=== PATIENT | female | born 1945 | race Caucasian/White ===

== ENCOUNTER 2018-09-12 00:56 | Inpatient (IN) | payer MEDICARE ==
[2018-09-12] MEDS ORDERED: HYDROcodone/APAP 10-325MG 1 EACH TAB PO PRN (03:52)
[2018-09-12 04:14] VITALS: BMI 23.3
[2018-09-12 05:18] LABS: Calcium 8.8 mg/dL (8.4-10.2); Potassium 4.1 mmol/L (3.5-5.1)
[2018-09-12 05:25] LABS: Basophils % (A) 0 %; Eosinophils # (A) 0.2 k/uL (0-0.7); Eosinophils % (A) 2 %; HCT 32.6 % (34.0-46.0); HGB 10.4 gm/dL (11.4-16.0); Lymphocytes # (A) 1.3 k/uL (1.0-4.8); Lymphocytes % (A) 17 %; MCH 30.8 pg (25.0-35.0); MCV 96.3 fL (80.0-100.0); Mean Platelet Volume 7.2; Monocytes # (A) 0.4 k/uL (0-1.0); Monocytes % (A) 5 %; Neutrophils # (A) 5.5 k/uL (1.3-7.7); Neutrophils % (A) 74 %; Platelet Count 202 k/uL (150-450); RBC 3.39 m/uL (3.80-5.40); RDW 13.6 % (11.5-15.5); WBC 7.4 k/uL (3.8-10.6)
[2018-09-12] MEDS: HYDROcodone/APAP 7.5-325MG 1 EACH TAB PO PRN ×3 (10:55→23:35)
--- NOTE | 2018-09-12 11:39 | CT ---
EXAMINATION TYPE: CT hip RT wo con DATE OF EXAM: 09/12/2018 COMPARISON: Outside right hip radiographs 09/11/2018 HISTORY: 73-year-old female fall, Right hip pain, ruling out fracture TECHNIQUE: Contiguous axial scanning of the right hip without IV contrast. Coronal and sagittal recon structions performed. CT DLP: 295.3 mGycm Automated exposure control for dose reduction was used. FINDINGS: Moderate degenerative change at the right hip. There is confirmation of a comminuted fracture of the greater trochanter. There is osteopenia without clear intertrochanteric extension adjacent soft tissu e swelling. Fenton catheter in place. IMPRESSION: 1. OSTEOPENIA WITH A COMMINUTED FRACTURE OF THE GREATER TROCHANTER. UNABLE TO CLEARLY IDENTIFY INTERT ROCHANTERIC EXTENSION. GIVEN THE OSTEOPENIA, IF CONCERN FOR INTERTROCHANTERIC EXTENSION, MRI CAN BE P ERFORMED. 2. MODERATE UNDERLYING RIGHT HIP OSTEOPOROSIS.
[2018-09-12] MEDS: DIAZEPAM 5 MG TAB PO SCH ×2 (16:03→20:01)
[2018-09-12] MEDS: HEPARIN SODIUM,PORCINE 5,000 UNIT/ML 1 ML VIAL SQ SCH ×2 (16:03→23:35)
[2018-09-12 16:35] LABS: Basophils % (A) 0 %; Eosinophils # (A) 0.2 k/uL (0-0.7); Eosinophils % (A) 3 %; HCT 32.7 % (34.0-46.0); HGB 10.5 gm/dL (11.4-16.0); Lymphocytes # (A) 1.4 k/uL (1.0-4.8); Lymphocytes % (A) 20 %; MCH 31.3 pg (25.0-35.0); MCHC 32.1 g/dL (31.0-37.0); MCV 97.5 fL (80.0-100.0); Mean Platelet Volume 7.1; Monocytes # (A) 0.4 k/uL (0-1.0); Monocytes % (A) 5 %; Neutrophils # (A) 4.9 k/uL (1.3-7.7); Neutrophils % (A) 70 %; Platelet Count 183 k/uL (150-450); RBC 3.35 m/uL (3.80-5.40); RDW 13.5 % (11.5-15.5)
[2018-09-12 16:37] LABS: INR 1.1 (<1.2)
--- NOTE | 2018-09-12 16:40 | P.CNOR ---
History of Present Illness - HPI Consult date: 09/12/18 History of present illness: This is a 73-year-old female who was transferred from [facility] for elevated troponins. Orthopedics is consulted to assess for right hip fracture. Patient states that she fell 2 days ago and has been unable to walk on the right leg since. Per nursing staff the patient lives at home with her son and fell while taking her cat outside. Patient does report pain in the right hip. Patient denies any back pain, numbness, weakness or tingling. Review of Systems See HPI. Past Medical History Past Medical History: Unable to Obtain History of Any Multi-Drug Resistant Organisms: None Reported Past Surgical History: Unable to Obtain Past Anesthesia/Blood Transfusion Reactions: No Reported Reaction Past Psychological History: Unable to Obtain Smoking Status: Current every day smoker Past Drug Use History: Unable to Obtain Medications and Allergies Home Medications Medication Instructions Recorded Confirmed Type Diazepam [Valium] 5 mg PO TID 06/27/16 09/12/18 History Furosemide [Lasix] 20 mg PO DAILY 06/27/16 09/12/18 History Meloxicam [Mobic] 7.5 mg PO BID 06/27/16 09/12/18 History Montelukast [Singulair] 10 mg PO DAILY 06/27/16 09/12/18 History Tiotropium 18 Mcg/Puff [Spiriva] 1 cap INHALATION DAILY 06/27/16 09/12/18 History HYDROcodone/APAP 5-325MG [Perkins 1 tab PO Q6HR 09/12/18 09/12/18 History 5-325] PARoxetine HCL [Paxil] 30 mg PO DAILY 09/12/18 09/12/18 History traZODone HCL 100 mg PO HS 09/12/18 09/12/18 History Allergies Allergy/AdvReac Type Severity Reaction Status Date / Time No Known Allergies Allergy Verified 09/12/18 07:57 Physical Examination On exam patient is resting comfortably in bed in no acute distress. Patient is alert. There is no tenderness to palpation over the right hip. There is no swelling, erythema or ecchymosis. Skin is intact. Compartments are soft. Patient has full active range of motion of the right lower extremity. There is some pain in the right hip with logroll. Calf is soft and nontender to palpation. Patient has full foot and ankle motion without pain or difficulty. Sensation is intact. Neurovascular status and circulatory status are intact. Results X-rays of the right hip from an outside facility show a cortical defect over the greater trochanter of the right hip. A CT scan of the right hip is pending for further evaluation. - Labs Labs: Abnormal Lab Results - Last 24 Hours (Table) 09/12/18 09/12/18 09/12/18 Range/Units 03:55 03:55 03:55 RBC 3.39 L (3.80-5.40) m/uL Hgb 10.4 L (11.4-16.0) gm/dL Hct 32.6 L (34.0-46.0) % Chloride 109 H (98-107) mmol/L Glucose 112 H (74-99) mg/dL Troponin I 0.077 H* (0.000-0.034) ng/mL H & H 09/12/18 Range/Units 03:55 Hgb 10.4 L (11.4-16.0) gm/dL Hct 32.6 L (34.0-46.0) % Result Diagrams: 09/12/18 03:55 09/12/18 03:55 Assessment and Plan (1) Elevated troponin Current Visit: Yes Status: Acute Code(s): R74.8 - ABNORMAL LEVELS OF OTHER SERUM ENZYMES SNOMED Code(s): 851099891 (2) Right hip pain Current Visit: Yes Status: Acute Code(s): M25.551 - PAIN IN RIGHT HIP SNOMED Code(s): 42516396 (3) Fall Current Visit: Yes Status: Acute Code(s): W19.XXXA - UNSPECIFIED FALL, INITIAL ENCOUNTER SNOMED Code(s): 5193408 Plan: #1.A CT scan of the right hip is pending. #2. Patient is to be nonweightbearing to the right lower extremity #3. Continue pain control. #4. Appreciate input from cardiology and internal medicine. #5. No surgical intervention planned for today. Further recommendations pending CT results.
[2018-09-12] MEDS: traZODone HCL 100 MG TAB PO SCH (20:01)
[2018-09-12] MEDS ORDERED: MELOXICAM 7.5 MG TAB PO SCH (21:00)
--- NOTE | 2018-09-13 01:06 | HP ---
HISTORY AND PHYSICAL CHIEF COMPLAINT: A 73-year-old white female admitted with right hip fracture and elevated troponins. She has been evaluated by Cardiology and Orthopedic surgery for possible treatment for the right hip fracture and she is having no chest pain or shortness of breath. HOME MEDICINES: See list. REVIEW OF SYSTEMS: Fourteen point review of systems negative except for mentioned in HPI. PHYSICAL EXAM: Vital signs stable. Afebrile. Cardiovascular S1, S2. LUNGS: Clear. GI soft. Hematology negative Homans. Psych fair mood and affect. NEUROLOGIC: Alert and oriented x3. Musculoskeletal: She is tender to palpation right hip. ASSESSMENT: 1. Acute trochanteric right hip fracture. 2. Elevated troponins. 3. Chronic obstructive pulmonary disease. 4. Nicotine addiction. 5. Hypertension. 6. Lumbar neuritis. Continue current treatment. Await Cardiology and orthopedic recommendations. MMODL / IJN: [id number] /
[2018-09-13] MEDS: HYDROcodone/APAP 7.5-325MG 1 EACH TAB PO PRN ×3 (04:45→18:45)
[2018-09-13 06:59] LABS: Basophils % (A) 1 %; Eosinophils # (A) 0.6 k/uL (0-0.7); Eosinophils % (A) 10 %; HCT 32.9 % (34.0-46.0); HGB 10.4 gm/dL (11.4-16.0); Hypochromasia Slight; Lymphocytes # (A) 1.9 k/uL (1.0-4.8); Lymphocytes % (A) 30 %; MCH 30.8 pg (25.0-35.0); MCHC 31.5 g/dL (31.0-37.0); MCV 97.6 fL (80.0-100.0); Mean Platelet Volume 7.1; Monocytes # (A) 0.3 k/uL (0-1.0); Monocytes % (A) 5 %; Neutrophils # (A) 3.4 k/uL (1.3-7.7); Neutrophils % (A) 54 %; Platelet Count 187 k/uL (150-450); RBC 3.37 m/uL (3.80-5.40); RDW 13.6 % (11.5-15.5); WBC 6.3 k/uL (3.8-10.6)
[2018-09-13] MEDS: IPRATROPIUM 0.5 MG/2.5 ML NEBU INHALATION SCH ×4 (06:59→20:24)
--- NOTE | 2018-09-13 07:07 | ECHOF ---
Referral Reason:abn trop MEASUREMENTS -------- HEIGHT: 165.1 cm WEIGHT: 57.6 kg BP: 143/67 RVIDd: 3.7 cm (< 3.3) IVSd: 0.7 cm (0.6 - 1.1) LVIDd: 4.1 cm (3.9 - 5.3) LVPWd: 0.9 cm (0.6 - 1.1) IVSs: 1.0 cm LVIDs: 2.4 cm LVPWs: 1.6 cm Ao Diam: 3.1 cm (2.0 - 3.7) AV Cusp: 1.7 cm (1.5 - 2.6) LA Diam: 1.0 cm (2.7 - 3.8) MV EXCURSION: 12.972 mm (> 18.000) MV EF SLOPE: 84 mm/s (70 - 150) EPSS: 1.4 cm MV E Jamie: 0.69 m/s MV DecT: 207 ms MV A Jamie: 0.89 m/s MV E/A Ratio: 0.78 RAP: 5.00 mmHg RVSP: 44.80 mmHg FINDINGS -------- Sinus rhythm. This was a technically adequate study. The left ventricular size is normal. Left ventricular wall thickness is normal. Overall left vent ricular systolic function is normal with, an EF between 55 - 60 %. The right ventricle is mild to moderately enlarged. The right ventricular systolic function is mode rately impaired. The left atrium is normal in size. The right atrium is normal in size. The aortic valve is trileaflet and appears structurally normal. The mitral valve leaflets are mildly thickened. There is trace mitral regurgitation. Mild tricuspid regurgitation present. There is mild pulmonary hypertension. The right ventricular systolic pressure, as measured by Doppler, is 44.80mmHg. There is no pulmonic regurgitation present. The aortic root size is normal. Normal inferior vena cava with normal inspiratory collapse consistent with estimated right atrial pre ssure of 5 mmHg. There is no pericardial effusion. CONCLUSIONS -------- 1. Sinus rhythm. 2. This was a technically adequate study. 3. The left ventricular size is normal. 4. Left ventricular wall thickness is normal. 5. Overall left ventricular systolic function is normal with, an EF between 55 - 60 %. 6. The right ventricle is mild to moderately enlarged. 7. The right ventricular systolic function is moderately impaired. 8. The left atrium is normal in size. 9. The aortic valve is trileaflet and appears structurally normal. 10. The mitral valve leaflets are mildly thickened. 11. There is trace mitral regurgitation. 12. Mild tricuspid regurgitation present. 13. There is mild pulmonary hypertension. 14. There is no pulmonic regurgitation present. 15. The aortic root size is normal. 16. Normal inferior vena cava with normal inspiratory collapse consistent with estimated right atrial pressure of 5 mmHg. 17. There is no pericardial effusion. HISTOLOGY TECHNOLOGIST: Griselda Juan RDCS
[2018-09-13] MEDS: SODIUM CHLORIDE 0.9% 1,000 ML IV SCH ×2 (07:57→21:42)
[2018-09-13] MEDS: FUROSEMIDE 20 MG TAB PO SCH (07:57)
[2018-09-13] MEDS: HEPARIN SODIUM,PORCINE 5,000 UNIT/ML 1 ML VIAL SQ SCH ×3 (07:57→23:21)
[2018-09-13] MEDS: MONTELUKAST 10 MG TAB PO SCH (07:58)
[2018-09-13] MEDS: PARoxetine 10 MG TAB PO SCH (07:58)
[2018-09-13] MEDS: KETOROLAC 30 MG/ML 1 ML VIAL IVP PRN ×3 (07:59→23:21)
--- NOTE | 2018-09-13 08:04 | P.CRDCN ---
History of Present Illness Consult date: 09/13/18 Requesting physician: David Felton Reason for Consult (text): Abnormal troponin Chief complaint: Fall History of present illness: This is a 73-year-old female with no prior documented history of hypertension, no diabetes, no hyperlipidemia, history of asthma, COPD, nicotine dependence, she was initially transferred here from [facility] after experiencing a fall at home. Patient denies any syncope, she just states that she tripped over something and fell. Troponins were drawn and Laureles which came back to be abnormal and for this reason the patient was transferred to [facility] for further evaluation. Initial troponin I [facility] 0.06, subsequent troponins performed here 0.07, 0.05, 0.03. CAT scan of the hip was performed which revealed osteopenia with comminuted fracture of the greater trochanter. Moderate right hip osteoporosis. Echocardiogram with Doppler study was performed which revealed an ejection fraction of 55-60%. Blood pressure 114/50 with a heart rate in the 80s, 95% on room air. Blood cell count is normal, hemoglobin 10.4, platelet count 187. Sodium 139, potassium 4.1 , BUN 17, creatinine 0.8. EKG at [facility] showed a normal sinus rhythm with no acute changes. Subsequent EKG performed on arrival here showed a normal sinus rhythm with no acute changes. At the time of my examination, patient feels tired, but otherwise has no complaints. She does have a bruised area noted to her chin. She is complaining of some mild discomfort in her right hip area. Past Medical History Past Medical History: Unable to Obtain History of Any Multi-Drug Resistant Organisms: None Reported Past Surgical History: Unable to Obtain Past Anesthesia/Blood Transfusion Reactions: No Reported Reaction Past Psychological History: Unable to Obtain Smoking Status: Current every day smoker Past Drug Use History: Unable to Obtain Medications and Allergies Home Medications Medication Instructions Recorded Confirmed Type Diazepam [Valium] 5 mg PO TID 06/27/16 09/12/18 History Furosemide [Lasix] 20 mg PO DAILY 06/27/16 09/12/18 History Meloxicam [Mobic] 7.5 mg PO BID 06/27/16 09/12/18 History Montelukast [Singulair] 10 mg PO DAILY 06/27/16 09/12/18 History Tiotropium 18 Mcg/Puff [Spiriva] 1 cap INHALATION DAILY 06/27/16 09/12/18 History HYDROcodone/APAP 5-325MG [Jewett 1 tab PO Q6HR 09/12/18 09/12/18 History 5-325] PARoxetine HCL [Paxil] 30 mg PO DAILY 09/12/18 09/12/18 History traZODone HCL 100 mg PO HS 09/12/18 09/12/18 History Allergies Allergy/AdvReac Type Severity Reaction Status Date / Time No Known Allergies Allergy Verified 09/12/18 07:57 Physical Exam Vitals: Vital Signs Temp Pulse Pulse Resp BP Pulse Ox 09/13/18 07:07 82 09/13/18 06:59 84 09/13/18 04:00 98.2 F 80 20 114/53 95 09/13/18 03:06 16 09/13/18 00:00 74 16 09/12/18 23:31 98.3 F 74 16 95/54 98 09/12/18 20:00 74 20 09/12/18 19:58 98.2 F 74 20 111/54 93 L 09/12/18 16:00 70 16 09/12/18 15:30 98.2 F 77 16 108/55 93 L 09/12/18 12:00 98.5 F 77 16 130/58 94 L 09/12/18 08:00 99.5 F 98 20 143/67 93 L Intake and Output 09/12/18 09/13/18 09/13/18 22:59 06:59 14:59 Intake Total 240 250 Output Total 420 Balance 240 -170 Intake: Oral 240 250 Output: Urine 420 Other: Voiding Method Indwelling Catheter Indwelling Catheter # Voids 1 # Bowel Movements 1 Weight 56.5 kg PHYSICAL EXAMINATION: GENERAL: 73-year-old female in no acute distress at the time of my examination HEENT: Head is atraumatic, normocephalic. Ecchymosis noted to the chin area Pupils equal, round. Sclera anicteric. Conjunctiva are clear. Mucous membranes of the mouth are moist. Neck is supple. There is no elevated jugular venous pressure.No Carotid bruit is heard. HEART EXAMINATION: Heart S1, S2 normal. No murmur or gallop heard. CHEST EXAMINATION: Lungs are clear to auscultation and precussion. No chest wall tenderness is noted on palpation or with deep breathing. ABDOMEN: Soft, nontender. Bowel sounds are heard. No organomegaly noted. EXTREMITIES: 2+ peripheral pulses with no evidence of peripheral edema and no calf tenderness noted. Right hip discomfort NEUROLOGIC patient is awake, alert and oriented 3 . . Results 09/13/18 05:59 09/12/18 03:55 Cardiac Enzymes 09/12/18 09/12/18 Range/Units 09:15 15:53 Troponin I 0.052 H* 0.039 H* (0.000-0.034) ng/mL Coagulation 09/12/18 Range/Units 15:53 PT 11.0 (9.0-12.0) sec CBC 09/12/18 09/13/18 Range/Units 15:53 05:59 WBC 7.0 6.3 (3.8-10.6) k/uL RBC 3.35 L 3.37 L (3.80-5.40) m/uL Hgb 10.5 L 10.4 L (11.4-16.0) gm/dL Hct 32.7 L 32.9 L (34.0-46.0) % Plt Count 183 187 (150-450) k/uL Current Medications Generic Name Dose Route Start Last Admin Trade Name Freq PRN Reason Stop Dose Admin Hydrocodone Bitart/Acetaminophen 1 each 09/12/18 09:41 09/13/18 04:45 Jewett 7.5-325 PO 1 each Q6H PRN Administration Pain Scale 1 to 5 Hydrocodone Bitart/Acetaminophen 2 each 09/12/18 09:43 09/12/18 23:35 Jewett 7.5-325 PO 2 each Q6H PRN Administration Pain Scale 6 to 10 Diazepam 5 mg 09/12/18 16:00 09/12/18 20:01 Valium PO 5 mg TID NING Administration Furosemide 20 mg 09/13/18 09:00 Lasix PO DAILY NING Heparin Sodium (Porcine) 5,000 unit 09/12/18 16:00 09/12/18 23:35 Heparin SQ 5,000 unit Q8HR NING Administration Sodium Chloride 1,000 mls @ 75 mls/hr 09/13/18 07:30 Saline 0.9% IV .[id number] NING Ipratropium Phoenix 0.5 mg 09/13/18 08:00 09/13/18 06:59 Atrovent Nebulized INHALATION 0.5 mg RT-QID NING Administration Ketorolac Tromethamine 15 mg 09/13/18 07:29 Toradol IVP 09/17/18 07:29 Q6HR PRN Breakthrough Pain Montelukast Sodium 10 mg 09/13/18 09:00 Singulair PO DAILY NING Paroxetine HCl 30 mg 09/13/18 09:00 Paxil PO DAILY NING Trazodone HCl 100 mg 09/12/18 21:00 09/12/18 20:01 Desyrel PO 100 mg HS NING Administration Intake and Output 09/12/18 09/13/18 09/13/18 22:59 06:59 14:59 Intake Total 240 250 Output Total 420 Balance 240 -170 Intake: Oral 240 250 Output: Urine 420 Other: Voiding Method Indwelling Catheter Indwelling Catheter # Voids 1 # Bowel Movements 1 Weight 56.5 kg 09/13/18 05:59 09/12/18 03:55 EKG Interpretations (text) EKG shows normal sinus rhythm with no acute changes. Assessment and Plan Plan: Assessment and plan #1 fall with evidence of fracture of the greater trochanter right hip, no evidence of any syncope #2 abnormal troponins not consistent with acute coronary syndrome. EKG shows normal sinus rhythm with no acute changes. Echo reveals normal left ventricular systolic function. #3 nicotine dependence #4 COPD Plan From cardiology's perspective, patient may proceed with surgery of the right hip if recommended by orthopedics. She has moderate risk. We will give a small dose beta davis and continue to follow along with you. Further recommendations to follow. DNP note has been reviewed, I agree with a documented findings and plan of care. Patient was seen and examined.
--- NOTE | 2018-09-13 08:46 | P.PN ---
Subjective Progress Note Date: 09/13/18 This is a 73-year-old female who was transferred from [facility] for elevated troponins and right hip fracture. A CT of the right hip from 2017 shows a comminuted fracture of the right greater trochanter. Today patient states that her pain is well-controlled. Patient states that she does not have pain unless she tries to bear weight on the right lower extremity. Patient denies any new complaints today. Patient denies any fever/chills, numbness, weakness, tingling, abdominal pain, shortness of breath or chest pain. Objective - Vital Signs Vital signs: Vital Signs Temp 98.2 F 09/13/18 07:53 Pulse 82 09/13/18 08:00 Resp 17 09/13/18 08:00 BP 118/53 09/13/18 07:53 Pulse Ox 92 L 09/13/18 07:53 Intake & Output 09/12/18 09/13/18 09/13/18 18:59 06:59 18:59 Intake Total 360 370 Output Total 200 420 Balance 160 -50 Weight 56.5 kg Intake: Oral 360 370 Output: Urine 200 420 Other: Voiding Method Indwelling Catheter Indwelling Catheter Indwelling Catheter # Voids 1 # Bowel Movements 1 - Exam On exam patient is alert and sitting comfortably in bed in no acute distress. Patient is sitting with both legs flexed. Patient has minimal pain with full active range of motion of the right hip. There is mild tenderness to palpation over the greater trochanter. There is no deformity of the right lower extremity. There is no erythema or ecchymosis. Skin is intact. Compartments are soft. Sensation is intact. Neurovascular status and circulatory status are intact. - Labs CBC & Chem 7: 09/13/18 05:59 09/12/18 03:55 Labs: Abnormal Lab Results - Last 24 Hours (Table) 09/12/18 09/12/18 09/12/18 Range/Units 09:15 15:53 15:53 RBC 3.35 L (3.80-5.40) m/uL Hgb 10.5 L (11.4-16.0) gm/dL Hct 32.7 L (34.0-46.0) % Troponin I 0.052 H* 0.039 H* (0.000-0.034) ng/mL 09/13/18 Range/Units 05:59 RBC 3.37 L (3.80-5.40) m/uL Hgb 10.4 L (11.4-16.0) gm/dL Hct 32.9 L (34.0-46.0) % Troponin I (0.000-0.034) ng/mL Assessment and Plan Assessment: COPD Hypertension (1) Elevated troponin Current Visit: Yes Status: Acute Code(s): R74.8 - ABNORMAL LEVELS OF OTHER SERUM ENZYMES SNOMED Code(s): 896362212 (2) Right hip pain Current Visit: Yes Status: Acute Code(s): M25.551 - PAIN IN RIGHT HIP SNOMED Code(s): 38510664 (3) Fall Current Visit: Yes Status: Acute Code(s): W19.XXXA - UNSPECIFIED FALL, INITIAL ENCOUNTER SNOMED Code(s): 4182111 (4) Fracture of greater trochanter of right femur Current Visit: Yes Status: Acute Code(s): S72.111A - DISP FX OF GREATER TROCHANTER OF RIGHT FEMUR, INIT SNOMED Code(s): 174410700 Plan: #1.A CT scan of the right hip shows a comminuted fracture of the greater trochanter of the right hip. No surgical intervention is indicated. #2. Patient is to be toe-touch weightbearing to the right lower extremity with a walker. Recommend physical therapy. #3. Continue pain control. #4. Appreciate input from cardiology and internal medicine. #5. No surgical intervention is indicated. Will continue to follow the patient closely.
[2018-09-13] MEDS: DIAZEPAM 5 MG TAB PO SCH ×3 (12:43→20:47)
[2018-09-13] MEDS: METOPROLOL TARTRATE 12.5 MG TAB PO SCH ×2 (12:51→20:46)
--- NOTE | 2018-09-13 16:21 | P.CONS ---
History of Present Illness - Chief Complaint Walking difficulty - History of Present Illness I had the opportunity to see patient for inpatient rehab consultation with regard to walking difficulty. She was admitted to [facility] September 12 history of slip and fall at home and right hip pain. Seen at [facility] and transferred to [facility]. Right hip CT demonstrated comminuted greater trochanteric fracture right hip as well as osteopenia and osteoporosis. Seen by cardiology for hypertension. Orthopedics recommends toe-touch weightbearing right leg. PT reports minimal assistance for transfers and gait 2 feet with roller walker. OT reports supervision for upper dressing and moderate assistance for lower dressing and minimal assistance for bathing and toileting. Previous functional history as elicited from patient: 73-year-old right-handed white female who is and lives in one floor home with son. Describes that they share the cooking and laundry. Patient doesn't drive and doesn't own a car. Independent with tub bath and gait without device. Dr. David Felton regular doctor. Patient admits to smoking tobacco daily and denies alcohol. Family history of diabetes and LA in father. Review of Systems Review of systems: ENT: Denies sneezes or discharge. Eyes: Denies discharge or photophobia. Cardiac: Denies chest pain or palpitation. Pulmonary: Denies cough or shortness of breath. Breast: Denies discharge or lumps. Gastrointestinal: Denies nausea, emesis, constipation, diarrhea. Genitourinary: Denies discharge or frequency. Musculoskeletal: Right hip pain. Neurologic: Denies motor or sensory change. Endocrine: Denies shakes or sweats. Oncology: Denies cancers. Dermatologic: Denies rash, itching, pruritus. ALLERGY/immunology: Denies sneezes, rashes. Past Medical History Past Medical History: Unable to Obtain History of Any Multi-Drug Resistant Organisms: None Reported Past Surgical History: Unable to Obtain Past Anesthesia/Blood Transfusion Reactions: No Reported Reaction Past Psychological History: Unable to Obtain Smoking Status: Current every day smoker Past Drug Use History: Unable to Obtain Medications and Allergies Home Medications Medication Instructions Recorded Confirmed Type Diazepam [Valium] 5 mg PO TID 06/27/16 09/12/18 History Furosemide [Lasix] 20 mg PO DAILY 06/27/16 09/12/18 History Meloxicam [Mobic] 7.5 mg PO BID 06/27/16 09/12/18 History Montelukast [Singulair] 10 mg PO DAILY 06/27/16 09/12/18 History Tiotropium 18 Mcg/Puff [Spiriva] 1 cap INHALATION DAILY 06/27/16 09/12/18 History HYDROcodone/APAP 5-325MG [Crawley 1 tab PO Q6HR 09/12/18 09/12/18 History 5-325] PARoxetine HCL [Paxil] 30 mg PO DAILY 09/12/18 09/12/18 History traZODone HCL 100 mg PO HS 09/12/18 09/12/18 History Allergies Allergy/AdvReac Type Severity Reaction Status Date / Time No Known Allergies Allergy Verified 09/12/18 07:57 Physical Exam Vitals: Vital Signs Temp Pulse Pulse Resp BP Pulse Ox 09/13/18 12:00 97.8 F 72 16 112/59 93 L 09/13/18 11:10 78 09/13/18 10:58 74 09/13/18 08:00 82 17 09/13/18 07:53 98.2 F 82 17 118/53 92 L 09/13/18 07:07 82 09/13/18 06:59 84 09/13/18 04:00 98.2 F 80 20 114/53 95 09/13/18 03:06 16 09/13/18 00:00 74 16 09/12/18 23:31 98.3 F 74 16 95/54 98 09/12/18 20:00 74 20 09/12/18 19:58 98.2 F 74 20 111/54 93 L Intake and Output 09/13/18 09/13/18 09/13/18 06:59 14:59 22:59 Intake Total 250 120 Output Total 420 Balance -170 120 Intake: Oral 250 120 Output: Urine 420 Other: Voiding Method Indwelling Catheter Indwelling Catheter Weight 56.5 kg Skin: Atrophic, intact. General: Thin build and comfortable appearance. Head: Normocephalic, atraumatic. Eyes: Symmetric. Pupils equal round. Ears: Symmetric. Hearing within normal limits. Mouth: Clear. Neck: Supple. Carotid without bruit. Cardiac: Regular rate and rhythm. Lungs: Clear anteriorly and posteriorly. Abdomen: Soft active nontender. Extremities: Normal tone. Thin limbs. Neurological: Mental status: Alert, cooperative, pleasant. Cranial nerves: Symmetric facial tone and trapezius. Motor: Active movement all 4 limbs but with giveaway weakness right more so than left leg. Sensation: Intact throughout. DTRs: Symmetric and equal throughout. Mobility: Requires assistance for bed mobility and sitting and complains of pain. Results CBC & Chem 7: 09/13/18 05:59 09/12/18 03:55 Labs: Abnormal Lab Results - Last 24 Hours (Table) 09/12/18 09/12/18 09/13/18 Range/Units 15:53 15:53 05:59 RBC 3.35 L 3.37 L (3.80-5.40) m/uL Hgb 10.5 L 10.4 L (11.4-16.0) gm/dL Hct 32.7 L 32.9 L (34.0-46.0) % Troponin I 0.039 H* (0.000-0.034) ng/mL Assessment and Plan (1) Fracture of greater trochanter of right femur Current Visit: Yes Status: Acute Code(s): S72.111A - DISP FX OF GREATER TROCHANTER OF RIGHT FEMUR, INIT SNOMED Code(s): 633468113 Plan: Impression: 1. Walking difficulty. 2. Right femur greater trochanteric fracture. 3. Hypertension. Comments and plan: At this time PT and OT are ongoing. Patient's main problem however is pain and this questions patient ability to endure 3 hours therapy per day which should be require by insurance for full inpatient rehab. We'll review patient's case tomorrow a.m. with trauma coordinator.
[2018-09-13] MEDS: traZODone HCL 100 MG TAB PO SCH (20:47)
[2018-09-14] MEDS: SODIUM CHLORIDE 0.9% 1,000 ML IV SCH ×2 (06:06→23:08)
[2018-09-14] MEDS: HYDROcodone/APAP 7.5-325MG 1 EACH TAB PO PRN ×2 (06:53→15:18)
[2018-09-14] MEDS: IPRATROPIUM 0.5 MG/2.5 ML NEBU INHALATION SCH ×4 (07:25→20:14)
--- NOTE | 2018-09-14 08:36 | P.PN ---
Subjective Progress Note Date: 09/14/18 This is a 73-year-old female who was transferred to [facility] from [facility] for elevated troponins and right hip fracture. A CT of the right hip from 09/12/2018 shows a comminuted fracture of the right greater trochanter. Today patient states that her pain is starting to improve and she has been out of bed and working with physical therapy. Patient denies any new complaints today. Patient denies any fever/chills, numbness, weakness, tingling , abdominal pain, shortness of breath or chest pain. Objective - Vital Signs Vital signs: Vital Signs Temp 97.6 F 09/14/18 04:00 Pulse 68 09/14/18 07:37 Resp 16 09/14/18 04:00 BP 117/57 09/14/18 04:00 Pulse Ox 93 L 09/14/18 04:00 Intake & Output 09/13/18 09/14/18 09/14/18 18:59 06:59 18:59 Intake Total 2360 919 Output Total 800 181 Balance 1560 738 Weight 56.3 kg Intake: Intake, IV Titration 225 Amount Sodium Chloride 0.9% 1, 225 000 ml @ 75 mls/hr IV . [id number] [facility] Rx#:[id number] Oral 2360 694 Output: Urine 800 180 Uretheral (Fenton) 400 Stool 1 Other: Voiding Method Indwelling Catheter Bedside Commode # Voids 300 - Exam On exam patient is alert and sitting comfortably in bed in no acute distress. Patient has minimal pain with full active range of motion of the right hip. There is mild tenderness to palpation over the greater trochanter. There is no deformity of the right lower extremity. There is no erythema or ecchymosis. Skin is intact. Calf is soft and nontender to palpation. Compartments are soft. Sensation is intact. Neurovascular status and circulatory status are intact. - Labs CBC & Chem 7: 09/13/18 05:59 09/12/18 03:55 Assessment and Plan Assessment: COPD Hypertension (1) Elevated troponin Current Visit: Yes Status: Acute Code(s): R74.8 - ABNORMAL LEVELS OF OTHER SERUM ENZYMES SNOMED Code(s): 455319135 (2) Right hip pain Current Visit: Yes Status: Acute Code(s): M25.551 - PAIN IN RIGHT HIP SNOMED Code(s): 08369870 (3) Fall Current Visit: Yes Status: Acute Code(s): W19.XXXA - UNSPECIFIED FALL, INITIAL ENCOUNTER SNOMED Code(s): 5279884 (4) Fracture of greater trochanter of right femur Current Visit: Yes Status: Acute Code(s): S72.111A - DISP FX OF GREATER TROCHANTER OF RIGHT FEMUR, INIT SNOMED Code(s): 293271301 Plan: #1.A CT scan of the right hip shows a comminuted fracture of the greater trochanter of the right hip. No surgical intervention is indicated. #2. Patient is to be toe-touch weightbearing to the right lower extremity with a walker. Continue physical therapy. #3. Continue pain control. #4. Appreciate input from cardiology and internal medicine. #5. No surgical intervention is indicated. Will continue to follow the patient closely.
[2018-09-14] MEDS: METOPROLOL TARTRATE 12.5 MG TAB PO SCH ×2 (09:42→21:03)
[2018-09-14] MEDS: DIAZEPAM 5 MG TAB PO SCH ×3 (09:42→23:08)
[2018-09-14] MEDS: FUROSEMIDE 20 MG TAB PO SCH (09:42)
[2018-09-14] MEDS: HEPARIN SODIUM,PORCINE 5,000 UNIT/ML 1 ML VIAL SQ SCH ×3 (09:43→23:08)
[2018-09-14] MEDS: KETOROLAC 30 MG/ML 1 ML VIAL IVP PRN (09:43)
[2018-09-14] MEDS: PARoxetine 10 MG TAB PO SCH (09:44)
[2018-09-14] MEDS: MONTELUKAST 10 MG TAB PO SCH (09:45)
--- NOTE | 2018-09-14 12:50 | PN ---
PROGRESS NOTE DATE OF SERVICE: 09/13/2018 CHIEF COMPLAINT: A 73-year-old white female, elevated troponins and right hip fracture, a comminuted fracture of the right trochanter. She is starting physical therapy today. There is no surgical intervention needed. Cardiology states there is no acute myocardial event going on. ASSESSMENT: 1. Chronic obstructive pulmonary disease. 2. Hypertension. 3. Elevated troponins, possibly secondary to trauma. 4. Right hip pain, fall, fracture. Touch weightbearing to the right lower extremity with a walker. Continue physical therapy. Cardiology, I think has essentially cleared her. Possible discharge to [facility] soon. MMODL / IJN: [id number] /
[2018-09-14] MEDS: traZODone HCL 100 MG TAB PO SCH (21:04)
[2018-09-15] MEDS: HYDROcodone/APAP 7.5-325MG 1 EACH TAB PO PRN ×3 (03:10→16:26)
[2018-09-15] MEDS: HEPARIN SODIUM,PORCINE 5,000 UNIT/ML 1 ML VIAL SQ SCH ×3 (08:43→23:18)
[2018-09-15] MEDS: FUROSEMIDE 20 MG TAB PO SCH (08:44)
[2018-09-15] MEDS: METOPROLOL TARTRATE 12.5 MG TAB PO SCH ×2 (08:45→20:53)
[2018-09-15] MEDS: DIAZEPAM 5 MG TAB PO SCH ×3 (08:45→20:53)
[2018-09-15] MEDS: MONTELUKAST 10 MG TAB PO SCH (08:45)
[2018-09-15] MEDS: PARoxetine 10 MG TAB PO SCH (08:46)
[2018-09-15] MEDS: IPRATROPIUM 0.5 MG/2.5 ML NEBU INHALATION SCH ×4 (08:54→19:11)
--- NOTE | 2018-09-15 10:27 | XR ---
EXAMINATION TYPE: XR chest 1V portable DATE OF EXAM: 09/15/2018 COMPARISON: 09/04/2012 HISTORY: Evaluation for extended-care facility. TECHNIQUE: Single frontal view of the chest is obtained. FINDINGS: Pulmonary hyperinflation and biapical lucency represents underlying COPD. There is no foca l air space opacity, pleural effusion, or pneumothorax seen. The cardiac silhouette size is within n ormal limits. The osseous structures are intact. IMPRESSION: No acute cardiopulmonary process. Radiographic sequela of COPD.
--- NOTE | 2018-09-15 10:33 | PN ---
PROGRESS NOTE SUBJECTIVE: A 73-year-old white female admitted with fracture of her right femur and chin contusion. She is on toe-touch, she is waiting on ambulation waiting for physical therapy. Possible discharge to the senior living for rehab. CARDIOVASCULAR: S1-S2. LUNGS: Clear. GI: Soft. HEMATOLOGY: Negative Homans. PSYCH: Fair mood and affect. ASSESSMENT: 1. Right trochanteric femur fracture. 2. Chronic obstructive pulmonary disease. 3. Chin contusion. 4. Hypertension. 5. Elevated troponins. Cardiac ruled out any cardiac event. 6. Frequent falls. 7. Right hip pain, fracture of the greater trochanter, right femur. PT OT, toe-touch ambulation. Await rehab center placement. MMODL / IJN: [id number] /
--- NOTE | 2018-09-15 11:00 | P.PN ---
Progress Note - Text Progress Note Date: 09/15/18 Patient is a pleasant 73-year-old female who is seen examined at bedside for follow-up evaluation in regards to her right greater trochanteric hip fracture. Patient states pain at the right hip has continued to be controlled. She has been working with physical therapy to increase mobility and ambulation. She is toe-touch weightbearing on the right lower extremity with ambulation with a walker. She has been seen and examined by medicine this morning. Medicines plan for discharge back to [facility] most likely this coming 09/17/2018. Patient has no new complaints the bedside. She has been seen and examined by cardiology following increased troponins and has been cleared. Physical exam: Patient is awake, alert, and oriented 3 Vital signs stable Good chest excursion with deep inspiration and expiration Mild pain with palpation of the right hip Mild bruising over the right great trochanter No significant pain with internal and external rotation of the right hip Patient is moving legs independently in bed without significant difficulty Patient currently lying with bilateral hips in a flexed position Neurovascularly intact bilateral lower extremities Dorsiflexion, plantarflexion, and extensor hallucis longus positive sustained bilaterally Calves are soft and supple; No signs or symptoms of DVT; No calf pain Ecchymosis of the chin Assessment: Right comminuted fracture of the greater trochanter Right hip pain Status post fall Elevated troponins at admission Plan: 1. Patient will continue conservative treatment at this time in regards to her right comminuted fracture of the greater trochanter. We are not currently planning for surgical intervention in regards to her right hip. She may continue to be toe-touch weightbearing on the right lower extremity and may use a walker to aid in ambulation. She is encouraged to continue working with physical therapy to increase mobility and ambulation. Continue pain control with medications as prescribed. Patient is clear for discharge from an orthopedic standpoint once cleared by other medical providers. 2. Dr. Felton in medicine will continue to follow the patient for her other medical diagnoses 3. Following discharge, patient will plan to follow-up with Dr. Emiliano Bob at [facility] in approximate 1 week for further evaluation
[2018-09-15] MEDS: SODIUM CHLORIDE 0.9% 1,000 ML IV SCH (18:08)
[2018-09-15] MEDS: traZODone HCL 100 MG TAB PO SCH (20:53)
[2018-09-16] MEDS: HYDROcodone/APAP 7.5-325MG 1 EACH TAB PO PRN ×3 (03:06→16:52)
[2018-09-16] MEDS: SODIUM CHLORIDE 0.9% 1,000 ML IV SCH ×2 (05:46→20:40)
[2018-09-16] MEDS: IPRATROPIUM 0.5 MG/2.5 ML NEBU INHALATION SCH ×4 (08:29→19:57)
--- NOTE | 2018-09-16 10:11 | P.PN ---
Progress Note - Text Progress Note Date: 09/16/18 Patient is a pleasant 73-year-old female who is seen examined at bedside for follow-up evaluation in regards to her right greater trochanteric hip fracture. She has not had any significant change in her symptoms as compared to yesterday. Patient states pain at the right hip has continued to be controlled. She has been working with physical therapy to increase mobility and ambulation. She is toe-touch weightbearing on the right lower extremity with ambulation with a walker. She has been seen and examined by medicine this morning. Medicines plan for discharge back to [facility] most likely this coming 09/17/2018. Patient has no new complaints the bedside. She has been seen and examined by cardiology following increased troponins and has been cleared. Physical exam: Patient is awake, alert, and oriented 3 Vital signs stable Good chest excursion with deep inspiration and expiration Mild pain with palpation of the right hip Mild bruising with 2 small bruises over the right great trochanter No significant pain with internal and external rotation of the right hip Patient is moving legs independently in bed without significant difficulty Patient currently lying with bilateral hips in a flexed position Neurovascularly intact bilateral lower extremities Dorsiflexion, plantarflexion, and extensor hallucis longus positive sustained bilaterally Calves are soft and supple; No signs or symptoms of DVT; No calf pain Ecchymosis of the chin Assessment: Right comminuted fracture of the greater trochanter Right hip pain Status post fall Elevated troponins at admission Plan: 1. Patient will continue conservative treatment at this time in regards to her right comminuted fracture of the greater trochanter. We are not currently planning for surgical intervention in regards to her right hip. She may continue to be toe-touch weightbearing on the right lower extremity and may use a walker to aid in ambulation. She is encouraged to continue working with physical therapy to increase mobility and ambulation. Continue pain control with medications as prescribed. Patient is clear for discharge from an orthopedic standpoint once cleared by other medical providers. 2. Dr. Felton in medicine will continue to follow the patient for her other medical diagnoses 3. Following discharge, patient will plan to follow-up with Dr. Emiliano Bob at [facility] in approximate 1 week for further evaluation
[2018-09-16] MEDS: FUROSEMIDE 20 MG TAB PO SCH (10:38)
[2018-09-16] MEDS: DIAZEPAM 5 MG TAB PO SCH ×3 (10:38→20:39)
[2018-09-16] MEDS: PARoxetine 10 MG TAB PO SCH (10:39)
[2018-09-16] MEDS: MONTELUKAST 10 MG TAB PO SCH (10:39)
[2018-09-16] MEDS: METOPROLOL TARTRATE 12.5 MG TAB PO SCH ×2 (10:39→20:39)
[2018-09-16] MEDS: HEPARIN SODIUM,PORCINE 5,000 UNIT/ML 1 ML VIAL SQ SCH ×3 (10:40→23:21)
[2018-09-16] MEDS: traZODone HCL 100 MG TAB PO SCH (20:39)
--- NOTE | 2018-09-16 20:57 | PN ---
PROGRESS NOTE SUBJECTIVE: A 73-year-old white female with right hip fracture. The patient was very weak and has pain, but will need rehab placement. She wants to go to [facility] on [address]. Vital signs stable. Afebrile. CARDIOVASCULAR: S1, S2. Lungs are scattered wheezes. Integument shows some mild chin abrasion. No other rashes. Musculoskeletal: She has tenderness to palpation in the right hip. PLAN: Continue home medications for depression. Continue hypertension, pain medications, PT/OT, rehab placement. Hopefully to [facility] tomorrow. MMODL / IJN: [id number] /
[2018-09-17] MEDS: HYDROcodone/APAP 7.5-325MG 1 EACH TAB PO PRN ×3 (04:07→21:47)
[2018-09-17] MEDS: SODIUM CHLORIDE 0.9% 1,000 ML IV SCH ×2 (06:07→15:14)
[2018-09-17] MEDS: HEPARIN SODIUM,PORCINE 5,000 UNIT/ML 1 ML VIAL SQ SCH ×3 (08:17→23:54)
[2018-09-17] MEDS: METOPROLOL TARTRATE 12.5 MG TAB PO SCH ×2 (08:18→23:52)
[2018-09-17] MEDS: DIAZEPAM 5 MG TAB PO SCH ×3 (08:18→21:48)
[2018-09-17] MEDS: MONTELUKAST 10 MG TAB PO SCH (08:18)
[2018-09-17] MEDS: FUROSEMIDE 20 MG TAB PO SCH (08:18)
[2018-09-17] MEDS: PARoxetine 10 MG TAB PO SCH (08:18)
[2018-09-17] MEDS: IPRATROPIUM 0.5 MG/2.5 ML NEBU INHALATION SCH ×4 (08:41→21:17)
--- NOTE | 2018-09-17 08:55 | P.PN ---
Subjective Progress Note Date: 09/17/18 This is a 73-year-old female who was transferred to [facility] from [facility] for elevated troponins and right hip fracture. A CT of the right hip from 09/12/2018 shows a comminuted fracture of the right greater trochanter. Patient states that her pain is under control. Patient denies any new complaints today. Patient denies any fever/chills, numbness, weakness, tingling, abdominal pain, shortness of breath or chest pain. Objective - Vital Signs Vital signs: Vital Signs Temp 97.7 F 09/17/18 04:00 Pulse 76 09/17/18 08:51 Resp 16 09/17/18 04:10 BP 133/62 09/17/18 04:00 Pulse Ox 95 09/17/18 04:00 Intake & Output 09/16/18 09/17/18 09/17/18 18:59 06:59 18:59 Intake Total 240 Output Total 400 802 Balance -160 -802 Intake: Oral 240 Output: Urine 400 800 Stool 2 Other: Voiding Method Bedside Commode Bedside Commode # Voids 4 3 # Bowel Movements 1 1 - Exam On exam patient is alert and sitting comfortably in bed in no acute distress. Patient has minimal pain with full active range of motion of the right hip. Patient has full right foot and ankle motion without pain or difficulty. Calf is soft and nontender to palpation. Compartments are soft. Sensation is intact. Neurovascular status and circulatory status are intact. - Labs CBC & Chem 7: 09/13/18 05:59 09/12/18 03:55 Assessment and Plan Assessment: COPD Hypertension (1) Elevated troponin Current Visit: Yes Status: Acute Code(s): R74.8 - ABNORMAL LEVELS OF OTHER SERUM ENZYMES SNOMED Code(s): 720772026 (2) Right hip pain Current Visit: Yes Status: Acute Code(s): M25.551 - PAIN IN RIGHT HIP SNOMED Code(s): 90078726 (3) Fall Current Visit: Yes Status: Acute Code(s): W19.XXXA - UNSPECIFIED FALL, INITIAL ENCOUNTER SNOMED Code(s): 0711111 (4) Fracture of greater trochanter of right femur Current Visit: Yes Status: Acute Code(s): S72.111A - DISP FX OF GREATER TROCHANTER OF RIGHT FEMUR, INIT SNOMED Code(s): 086899363 Plan: #1.A CT scan of the right hip shows a comminuted fracture of the greater trochanter of the right hip. No surgical intervention is indicated. #2. Patient is to be toe-touch weightbearing to the right lower extremity with a walker. Continue physical therapy. #3. Continue pain control. #4. Appreciate input from cardiology and internal medicine. #5. No surgical intervention is indicated. Anticipate discharge to rehab today.
[2018-09-17] MEDS: traZODone HCL 100 MG TAB PO SCH (21:48)
[2018-09-18 01:21] VITALS: RESP 18
[2018-09-18] MEDS: SODIUM CHLORIDE 0.9% 1,000 ML IV SCH (07:18)
[2018-09-18] MEDS: IPRATROPIUM 0.5 MG/2.5 ML NEBU INHALATION SCH (08:29)
[2018-09-18] MEDS: MONTELUKAST 10 MG TAB PO SCH (09:44)
[2018-09-18] MEDS: DIAZEPAM 5 MG TAB PO SCH (09:44)
[2018-09-18] MEDS: METOPROLOL TARTRATE 12.5 MG TAB PO SCH (09:44)
[2018-09-18] MEDS: FUROSEMIDE 20 MG TAB PO SCH (09:44)
[2018-09-18] MEDS: HEPARIN SODIUM,PORCINE 5,000 UNIT/ML 1 ML VIAL SQ SCH (09:44)
[2018-09-18] MEDS: HYDROcodone/APAP 7.5-325MG 1 EACH TAB PO PRN ×2 (09:45→15:23)
[2018-09-18] MEDS: PARoxetine 10 MG TAB PO SCH (09:45)
[2018-09-18 10:42] VITALS: PULSE 60
--- NOTE | 2018-09-18 11:03 | PN ---
PROGRESS NOTE DATE OF SERVICE: 09/17/2018 SUBJECTIVE: A 73-year-old white female with right hip fracture, chin contusion, elevated troponins. Cardiology has cleared her. She will need physical therapy on her right leg per orthopedic surgery. She is going to [facility] tomorrow. Vital signs stable. Afebrile. Lungs are clear. CARDIOVASCULAR: S1, S2. MUSCULOSKELETAL: Limited motion of her right leg. ASSESSMENT: 1. Right trochanteric hip fracture. 2. Chin contusion. 3. Osteoarthritis. 4. Chronic obstructive pulmonary disease. 5. Nicotine addiction. 6. Severe chronic pain. She will need to go to [facility] on the [address] tomorrow for physical therapy. MMODL / IJN: [id number] /
--- NOTE | 2018-09-18 11:03 | DS ---
DISCHARGE SUMMARY DISCHARGE DIAGNOSIS: 1. Elevated troponin. 2. Fall, fracture of greater trochanter of the right hip, right hip pain. 3. Chua contusion. 4. Osteoarthritis. 5. Chronic obstructive pulmonary disease. 6. Anxiety, depression. HOME MEDICINES: 1. [place] 7.5 one to two every 6 hours p.r.n. for pain. 2. Metoprolol 12.5 b.i.d. 3. Spiriva 1 puff daily. 4. Singular 10 mg daily. 5. Lasix 20 mg daily. 6. Mobic 7.5 b.i.d. 7. Valium 5 mg t.i.d. 8. Trazodone 100 q.h.s. 9. Paxil 30 mg daily. CONDITION: Stable. PROGNOSIS: Guarded. DIET: Regular. Ambulate with physical therapy per orthopedic recommendations on the right hip. I think she is on toe-touch only toe of the right leg per orthopedic recommendations. No surgery was performed on the right hip from the fracture. She will follow up with Dr. David Felton. MMADDYL / MARLENEN: [id number] /
--- NOTE | 2018-09-18 11:13 | P.PN ---
Subjective Progress Note Date: 09/18/18 This is a 73-year-old female who was transferred to [facility] from [facility] for elevated troponins and right hip fracture. A CT of the right hip from 09/12/2018 shows a comminuted fracture of the right greater trochanter. Patient states that her pain is improving. Patient denies any new complaints today. Patient denies any fever/chills, numbness, weakness, tingling , abdominal pain, shortness of breath or chest pain. Objective - Vital Signs Vital signs: Vital Signs Temp 97.7 F 09/18/18 08:00 Pulse 64 09/18/18 08:29 Resp 18 09/18/18 08:00 BP 129/59 09/18/18 08:00 Pulse Ox 95 09/18/18 08:00 Intake & Output 09/17/18 09/18/18 09/18/18 18:59 06:59 18:59 Intake Total 1065 350 Output Total 3 404 1 Balance 1062 -54 -1 Intake: Intake, IV Titration 825 Amount Sodium Chloride 0.9% 1, 825 000 ml @ 75 mls/hr IV . [id number] [facility] Rx#:[id number] Oral 240 350 Output: Urine 400 Stool 3 4 1 Other: Voiding Method Bedside Commode Bedside Commode Bedside Commode # Voids 1 2 # Bowel Movements 1 - Exam On exam patient is alert and sitting on the side of the bed in no acute distress. Patient has good active thigh flexion without pain or difficulty. Skin is intact. There is faint ecchymosis. There is minimal tenderness to palpation over the right greater trochanter. No erythema. Patient has full right foot and ankle motion without pain or difficulty. Calf is soft and nontender to palpation. Compartments are soft. Sensation is intact. Neurovascular status and circulatory status are intact. - Labs CBC & Chem 7: 09/13/18 05:59 09/12/18 03:55 Assessment and Plan Assessment: COPD Hypertension (1) Elevated troponin Current Visit: Yes Status: Acute Code(s): R74.8 - ABNORMAL LEVELS OF OTHER SERUM ENZYMES SNOMED Code(s): 343787462 (2) Right hip pain Current Visit: Yes Status: Acute Code(s): M25.551 - PAIN IN RIGHT HIP SNOMED Code(s): 63604944 (3) Fall Current Visit: Yes Status: Acute Code(s): W19.XXXA - UNSPECIFIED FALL, INITIAL ENCOUNTER SNOMED Code(s): 4662042 (4) Fracture of greater trochanter of right femur Current Visit: Yes Status: Acute Code(s): S72.111A - DISP FX OF GREATER TROCHANTER OF RIGHT FEMUR, INIT SNOMED Code(s): 453067414 Plan: #1.A CT scan of the right hip shows a comminuted fracture of the greater trochanter of the right hip. No surgical intervention is indicated. #2. Patient is to be toe-touch weightbearing to the right lower extremity with a walker. Continue physical therapy. #3. Continue pain control. #4. Appreciate input from cardiology and internal medicine. #5. No surgical intervention is indicated. Awaiting discharge to rehab.
[2018-09-18 12:13] VITALS: BP 102/81; TEMP 98.5
--- NOTE | 2018-09-21 09:55 | CDI ---
Documentation Clarification Form Date: 09/21/2018 9:41:57 AM From: VALERIY Koenig; Jazzy Escobar Engineer Assistant Phone: If you have a question about this query, please contact Jazzy Escobar Engineer Assistant at [phone] between 8am and 5pm. Admit Date: 09/12/2018 3:03:00 AM Patient Name: Daniel Adkins Visit Number: [id number] Discharge Date: 09/18/2018 ATTENTION: The Clinical Documentation Specialists (CDI) and [facility] Coding Staff appreciate your assistance in clarifying documentation. Please respond to the clarification below the line at the bottom and electronically sign. The CDI & [facility] Coding staff will review the response and follow-up if needed. Please note: Queries are made part of the Legal Health Record. If you have any questions, please contact the author of this message via ITS. Dr. David Felton Patient has been diagnosed with an acute greater trochanter fracture of the right hip. History/Risk Factors: Transfer from outside facility for fracture and elevated troponins. X-Ray Results: Osteopenia with a comminuted fracture of the greater trochanter. Moderate underlying right hip osteoporosis. Treatment: Physical therapy and pain control In your professional opinion, please specify the following: Etiology of fracture: Traumatic Osteoporosis Other (please specify): Unable to determine MTDD
== END 2018-09-18 15:50 | DRG 536 ==
LOC: 3SCARD 03:03
PROVIDERS: ADMIT Family Medicine; ATTEND Family Medicine
DX: S72.111A Displaced fracture of greater trochanter of right femur, initial encounter for closed fracture (principal); F17.200 Nicotine dependence, unspecified, uncomplicated; F32.9 Major depressive disorder, single episode, unspecified; F41.9 Anxiety disorder, unspecified; G89.29 Other chronic pain; I10 Essential (primary) hypertension; J44.9 Chronic obstructive pulmonary disease, unspecified; M19.90 Unspecified osteoarthritis, unspecified site; M54.16 Radiculopathy, lumbar region; M81.0 Age-related osteoporosis without current pathological fracture; R29.6 Repeated falls; S80.11XA Contusion of right lower leg, initial encounter; W19.XXXA Unspecified fall, initial encounter; Z74.1 Need for assistance with personal care; Z79.899 Other long term (current) drug therapy; Z82.49 Family history of ischemic heart disease and other diseases of the circulatory system; Z83.3 Family history of diabetes mellitus
CPT/HCPCS: 71045; 80048; 84484; 85025; 85610; 93306; 94640

== ENCOUNTER → 2019-07-01 | Outpatient (CLI) | payer MEDICARE ==
--- NOTE | 2019-07-01 23:07 | MR ---
EXAMINATION TYPE: MR lumbar spine wo con DATE OF EXAM: 07/01/2019 COMPARISON: None HISTORY: Radiculopathy, Spondylolithesis, Rt side lower extremity pain TECHNIQUE: Multiplanar, multisequence images of the lumbar spine were acquired. Lumbar vertebra have normal alignment. There is degenerative disc space narrowing in the lumbar spine with exception of L4-5. There is posterior mild disc herniation from L1 to S1. L5-S1 disc herniation is larger. There is developmentally adequate spinal canal and no significant spinal stenosis. The victoria mbar nerve roots appear normal. There is no compression fracture. Posterior elements are intact. Ther e is mild neural foraminal narrowing due to disc space narrowing and facet arthropathy at multiple le vels. There is no lumbar paraspinal mass. There are multiple renal cortical cysts. Visualized sacroil iac joints appear intact. IMPRESSION: Multilevel spondylotic changes. Multilevel mild posterior lumbar disc herniations without significant spinal stenosis. No fracture. No spondylolisthesis. Right side neural foraminal stenosis at L1-2 and L2-3 and L5-S1.
--- NOTE | 2019-07-02 07:01 | XR ---
EXAMINATION TYPE: XR lumbar spine with bend/flex DATE OF EXAM: 07/01/2019 CLINICAL HISTORY: Radiculopathy and spondylolisthesis TECHNIQUE: Frontal, lateral, dynamic flexion and extension lateral, and oblique images of the lumbar spine are obtained. COMPARISON: Lumbar spine x-ray November 28, 2008 FINDINGS: There are 5 lumbar type vertebral bodies redemonstrated. The lumbar spine shows stable st raightened alignment without evidence of acute fracture or dislocation. Vertebral body heights remain within normal limits. There is increased now advanced disc space narrowing with moderate anterior spurring in the endplate sclerosis L2-L3 level. There is new mild disc space narrowing L3-L4 level. T here is stable fairly advanced disc space narrowing with vacuum disc phenomenon L5-S1 level. Multilev el facet arthropathy is seen most prominent in the lower lumbar spine. Dynamic images show limited mo bility without increased disc space narrowing or focal subluxation. The oblique images appear within normal limits. Vascular calcification overlying soft tissue is redemonstrated. IMPRESSION: Worsening advanced degenerative change L2-L3 level.
== END | disposition home or self-care (01) ==
LOC: RADMRIMAIN 16:52
PROVIDERS: ATTEND Neurological Surgery
DX: M48.061 Spinal stenosis, lumbar region without neurogenic claudication (principal); M48.07 Spinal stenosis, lumbosacral region; M47.26 Other spondylosis with radiculopathy, lumbar region; M51.17 Intervertebral disc disorders with radiculopathy, lumbosacral region
CPT/HCPCS: 72114; 72148

== ENCOUNTER → 2019-08-23 | Outpatient (CLI) | payer MEDICARE ==
--- NOTE | 2019-08-23 11:23 | XR ---
EXAMINATION TYPE: XR chest 2V DATE OF EXAM: 08/23/2019 COMPARISON: 09/15/2018 TECHNIQUE: PA and lateral views submitted. HISTORY: Preop FINDINGS: The lungs are clear and there is no pneumothorax, pleural effusion, or focal pneumonia. Linear wing ges in the right upper lobe most of atelectasis or scar. No overt failure. Mild hyperinflation. Hyper trophic and degenerative change of the spine. IMPRESSION: 1. No acute process. Linear density in the right upper lobe most likely related to scar or atelectasi s could be followed on six-month basis.
[2019-08-23 12:28] LABS: Basophils # (A) 0.1 k/uL (0-0.2); Basophils % (A) 1 %; Eosinophils # (A) 0.4 k/uL (0-0.7); Eosinophils % (A) 5 %; HCT 36.2 % (34.0-46.0); HGB 11.6 gm/dL (11.4-16.0); Lymphocytes % (A) 29 %; MCH 30.6 pg (25.0-35.0); MCHC 32.2 g/dL (31.0-37.0); MCV 95.3 fL (80.0-100.0); Mean Platelet Volume 5.8; Monocytes # (A) 0.4 k/uL (0-1.0); Monocytes % (A) 6 %; Neutrophils # (A) 3.9 k/uL (1.3-7.7); Neutrophils % (A) 56 %; Platelet Count 339 k/uL (150-450); RBC 3.79 m/uL (3.80-5.40); RDW 13.4 % (11.5-15.5)
[2019-08-23 12:30] LABS: Appearance,Urine Clear (Clear); Bilirubin,Urine Negative (Negative); Blood,Urine Negative (Negative); Color,Urine Yellow; Glucose,Urine (UA) Negative (Negative); Ketones,Urine Negative (Negative); Leukocyte Esterase,Urine Negative (Negative); Nitrite,Urine Negative (Negative); Protein,Urine Negative (Negative); Urobilinogen,Urine <2.0 mg/dL (<2.0)
[2019-08-23 12:36] LABS: Albumin 3.7 g/dL (3.5-5.0); Calcium 9.3 mg/dL (8.4-10.2); Potassium 4.8 mmol/L (3.5-5.1); Total Bilirubin 0.2 mg/dL (0.2-1.3); Total Protein 7.2 g/dL (6.3-8.2)
[2019-08-23 12:39] LABS: INR 0.9 (<1.2); Partial Thromboplastin Time 24.4 sec (22.0-30.0); Prothrombin Time 9.4 sec (9.0-12.0)
== END | disposition home or self-care (01) ==
LOC: RADXRMAIN 10:54
PROVIDERS: ATTEND Neurological Surgery
DX: Z01.818 Encounter for other preprocedural examination (principal); Z01.810 Encounter for preprocedural cardiovascular examination; Z01.812 Encounter for preprocedural laboratory examination; M54.16 Radiculopathy, lumbar region
CPT/HCPCS: 71046; 80053; 81003; 85025; 85610; 85730; 86850; 86900; 86901; 87070; 93005

== ENCOUNTER → 2022-07-25 | Outpatient (CLI) | payer MEDICARE ==
--- NOTE | 2022-07-25 15:44 | XR ---
EXAMINATION TYPE: XR wrist complete LT DATE OF EXAM: 07/25/2022 3:33 PM INDICATION: Patient age:Female; 76 years old; Reason for study: S62.92XA UNSP FRACTURE OF LEFT WRIST AND HAND, INI; PHH. COMPARISON: None TECHNIQUE: 4 views of the left wrist. Frontal, navicular, lateral, and oblique. FINDINGS: Diffuse bone mineralization. Comminuted minimally displaced fracture of the distal radius w ith intra-articular extension. Nondisplaced fracture of the ulnar styloid. No dislocation. There is s oft tissue edema of the wrist. IMPRESSION: 1. Comminuted minimally displaced fracture of the distal radius with intraarticular extension. 2. Nondisplaced fracture of the ulnar styloid.
== END | disposition home or self-care (01) ==
LOC: RADXRMAIN 15:18
PROVIDERS: ATTEND Family Medicine
DX: S62.92XA Unspecified fracture of left hand, initial encounter for closed fracture (principal); S52.615A Nondisplaced fracture of left ulna styloid process, initial encounter for closed fracture

== ENCOUNTER → 2023-07-20 | Outpatient (CLI) | payer MEDICARE ==
--- NOTE | 2023-07-21 14:33 | MR ---
EXAMINATION TYPE: MR lumbar spine wo/w con DATE OF EXAM: 07/20/2023 5:28 PM CLINICAL INDICATION:Female, 77 years old with history of M51.26, M51.36 OTHER INTERVERTEBRAL DISC DIS PLACEM; PHH, DDD lumbar, herniated disc, pain COMPARISON: 2018. TECHNIQUE: Multi planar, multi sequence imaging was performed utilizing: T1-weighted, T2-weighted, a nd turbo inversion recovery imaging of the lumbar spine. IV Contrast: 8 cc Gadavist. (None if empty) FINDINGS: Alignment: The lumbar vertebral bodies have preserved heights and alignment. Cord: The conus medullaris and the distal spinal cord appear unremarkable with regards to their signa l intensity and morphology. No abnormal postcontrast enhancement. Bones/Discs: Multilevel disc degeneration changes with osteophyte formation, disc space narrowing, Sc hmorl's nodes, and facet joint arthropathy. No mild inversion recovery signal suggestive of edema par ticularly at the inferior endplate of L5 and L3. There is some mild postcontrast enhancement likely r epresenting reactive edema enhancement. Multilevel disc desiccation is present. T12-L1: Right foraminal disc extrusion which effaces the exiting nerve at this level Facet joint arth ropathy also present with mild neural foraminal stenosis. L1-L2: Disc bulge and facet joint arthropathy result in mild spinal canal and mild bilateral neural f oraminal stenosis. L2-L3: Disc bulge and facet joint arthropathy result in mild spinal canal and moderate bilateral neur al foraminal stenosis. L3-L4: Disc bulge and facet joint arthropathy result in moderate spinal canal and moderate bilateral neural foraminal stenosis. L4-L5: Disc bulge and facet joint arthropathy result in mild spinal canal and mild bilateral neural f oraminal stenosis. L5-S1: Disc bulge and facet joint arthropathy result in mild spinal canal and moderate bilateral neur al foraminal stenosis. Some postcontrast enhancement around the facet joints right greater than left. No significant spinal canal or neural foraminal stenosis in the remainder of the visualized levels. Other findings: Infrarenal abdominal aortic aneurysm measuring up to 4.8 x 4.2 cm. Previously up tor 3.5 x 3.4 cm on 07/01/2019 IMPRESSION: 1. T12-L1 right foraminal disc extrusion which effaces the exiting nerve on the right. 2. Some postcontrast enhancement around the facet joints at L5-S1 worse on the right. Correlate for active inflammation. 3. Moderate spinal canal stenosis at L3-L4 secondary to degeneration with disc bulge. No evidence of severe spinal canal stenosis. 4. Moderate disc degeneration with associated osteoarthritic changes. Findings may be mildly progres sed from 2019 exam. 5. Infrarenal abdominal aortic aneurysm measuring up to 4.8 x 4.2 cm. Vascular surgical consultation recommended.
== END | disposition home or self-care (01) ==
LOC: RADMRIMAIN 16:00
PROVIDERS: ATTEND Family Medicine
DX: M51.36 Other intervertebral disc degeneration, lumbar region (principal); M51.26 Other intervertebral disc displacement, lumbar region; I71.43 Infrarenal abdominal aortic aneurysm, without rupture; M51.25 Other intervertebral disc displacement, thoracolumbar region; M48.061 Spinal stenosis, lumbar region without neurogenic claudication; M43.06 Spondylolysis, lumbar region
CPT/HCPCS: 72158; A9585

== ENCOUNTER → 2023-08-04 | Outpatient (CLI) | payer MEDICARE ==
--- NOTE | 2023-08-07 08:01 | BD ---
EXAMINATION TYPE: Axial Bone Density DATE OF EXAM: 08/04/2023 CLINICAL HISTORY: 78 years old Female. ICD-10 CODE: Z78.0 POST MENOPAUSAL WITHOUT HRT Height: 64 Weight: 173.5 FRAX RISK QUESTIONS: Alcohol (3 or more units per day): no Family History (Parent hip fracture): no Glucocorticoids (More than 3mos): no History of Fracture in Adulthood: yes Secondary Osteoporosis: 1. Type 1 Diabetes: no 2. Hyperthyroidism: no 3. Menopause before 45: yes 4. Malnutrition: no 5. Chronic liver disease: no Rheumatoid Arthritis: no Current Tobacco Use: no RISK FACTORS HISTORY OF: Hip Fracture (Right/Left): RT Hip ([place]chan[place] only) When: 2017 Spine Fracture: no History of Wrist Fracture: Lt Wrist When: Age 77 Surgery to Spine/Hip(right/left)/Wrist (right/left): no Family History of Osteoporosis: no Active: no Diet low in dairy products/other sources of calcium: yes Postmenopausal woman: yes Take estrogen and/or progesterone medications: no Lost more than 2 inches in height since high school: yes Frequent falls: no Poor Health: no Hyperparathyroidism: no Adrenal Insufficiency: no MEDICATIONS: Prednisone or other steroids: no Thyroid Medications: no Osteoporosis Medications: no Additional Medications: Reflux Meds, Additional History: EXAM MEASUREMENTS: Bone mineral densitometry was performed using the [employer] System. Bone mineral density as measured about the Lumbar spine is: ----- L1-L4(G/cm2): 1.022 T Score Values are as follows: ----- L1: -2.0 ----- L2: -1.0 ----- L3: -1.5 ----- L4: -0.9 ----- L1-L4: -1.3 Z Score Values are as follows: ----- L1: -0.7 ----- L2: 0.3 ----- L3: -0.2 ----- L4: 0.4 ----- L1-L4: 0.0 Baseline Study Bone mineral density about the R hip (g/cm2): 0.634 Bone mineral density about the L hip (g/cm2): 0.673 T Score values are as follows: -----R Neck: -3.1 -----L Neck: -2.9 -----R Total: -3.0 -----L Total: -2.7 Z Score values are as follows: -----R Neck: -1.4 -----L Neck: -1.3 -----R Total: -1.5 -----L Total: -1.2 Baseline Study FRAX%s: The graph provided illustrates a 31.5% chance for a major osteoporotic fx and a 12.1% chance for the hips probability for fx in 10 years time. IMPRESSION: Osteoporosis (T Score less than -2.5). There is increased fracture risk and therapy is usually indicated based on age. Re-Screen 1-2 years. NOTE: T-SCORE=SD OF THE YOUNG ADULT MEAN.
--- NOTE | 2023-08-07 09:43 | MM ---
Reason for Exam: Screening (asymptomatic). Last mammogram was performed 7 year(s) and 1 month(s) ago. Patient History: Menarche at age 16. First Full-Term at age 25. Right ovary removed at age 42. Hysterectomy at age 42. Postmenopausal. Maternal aunt had breast cancer. Risk Values: Merlene 5 year model risk: 1.4%. NCI Lifetime model risk: 2.9%. Prior Study Comparison: 12/12/2000 Bilateral Screening Mammogram, [facility]. 06/06/2013 Bilateral Screening Mammogram, [facility]. 06/30/2016 Bilateral Diagnostic Mammogram, [facility]. Tissue Density: The breast tissue is almost entirely fat. Findings: Analyzed By CAD. There is no suspicious group of microcalcifications or new suspicious mass. Overall Assessment: Negative, BI-RAD 1 Management: Screening Mammogram of both breasts in [address] [facility] will attempt to contact patient to return for supplemental views and ultrasound if indicated. Patient should continue monthly self-breast exams. A clinical breast exam by your physician is recommended on an annual basis. This exam should not preclude additional follow-up of suspicious palpable abnormalities. Note on Merlene scores and lifetime risk: 1. A Merlene score greater than 3% is considered moderate risk. If this is the case, consider specialist referral to assess eligibility for a risk reducing agent. 2. If overall lifetime risk for the development of breast cancer is 20% or higher, the patient may qualify for future screening with alternating mammogram and breast MRI. Electronically signed and approved by: Carmelo Dunlap DO
== END | disposition home or self-care (01) ==
LOC: RADMAMWWP 12:48
PROVIDERS: ATTEND Family Medicine
DX: Z12.31 Encounter for screening mammogram for malignant neoplasm of breast (principal); M81.0 Age-related osteoporosis without current pathological fracture; M85.88 Other specified disorders of bone density and structure, other site; Z78.0 Asymptomatic menopausal state; Z80.3 Family history of malignant neoplasm of breast
CPT/HCPCS: 77063; 77067; 77080